=== PATIENT | female | born 1995 | race Hispanic/Latino ===

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

== ENCOUNTER 2017-09-23 15:38 | Emergency (ER) | payer BC, SELFPAY | END 2017-09-23 16:22 | disposition home or self-care (01) | LOC: NAV ERS 15:38 | DX: L55.0 Sunburn of first degree (principal) | CPT/HCPCS: 99282 ==

== ENCOUNTER 2018-03-29 11:30 | Emergency (ER) | payer BC ==
[2018-03-29 12:05] LABS: #Eosinphils 0.1 thou/uL (0.0-0.7); #Lymphocytes 1.7 thou/uL (1.20-3.40); #Monocytes 0.4 thou/uL (0.11-0.59); #Neutrophils 3.1 thou/uL (1.40-6.50); %Basophils 0.6 % (0.0-1.0); %Eosinophils 1.1 % (0.0-10.0); %Lymphocytes 31.5 % (28.0-48.0); %Monocytes 7.6 % (0.0-4.0); %Neutrophils 59.3 % (31.0-61.0); Hemoglobin 13.8 g/dL (12.0-16.0); Mean Corpuscular HGB CONC 33.4 g/dL (32.0-36.0); Mean Corpuscular Hemoglobin 28.7 pg (25.0-35.0); Mean Corpuscular Volume 85.8 fL (78.0-98.0); Mean Platelet Volume 7.1 fL (7.4-10.4); Platelet Count 239 thou/uL (130-400); RBC Distribution Width 11.3 % (11.5-14.5); Red Blood Cell (RBC) Count 4.83 mill/uL (4.00-5.20); White Blood Cell (WBC) Count 5.2 thou/uL (4.8-10.8)
== END 2018-03-29 13:17 | disposition short-term general hospital (02) ==
LOC: NAV ERS 11:30
DX: O46.91 Antepartum hemorrhage, unspecified, first trimester (principal); Z3A.01 Less than 8 weeks gestation of pregnancy
CPT/HCPCS: 36415; 84702; 85025; 86900; 86901; 99284

== ENCOUNTER 2018-06-23 19:38 | Emergency (ER) | payer BC ==
[2018-06-23 20:11] LABS: Pregnancy Test - Urine (BHCG) Negative (Negative); Pregu Control Background? CLEAR/WHITE (CLR/WHITE); Pregu Control Bar Appear? YES (CONTROL BAR); Specific Gravity 1.021 (1.002-1.036)
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
== END 2018-06-23 20:55 | disposition home or self-care (01) ==
LOC: NAV ERS 19:38
DX: M54.5 Low back pain (principal); V43.62XA Car passenger injured in collision with other type car in traffic accident, initial encounter
CPT/HCPCS: 72100; 81025

== ENCOUNTER 2018-12-06 09:50 | Outpatient (CLI) | payer BC ==
--- NOTE | 2018-12-06 11:09 | ULT ---
EXAM: OB ultrasound COMPARISON: None HISTORY: female. Evaluate size, dates, and anatomy. TECHNIQUE: Multiplanar grayscale and color Doppler transabdominal sonographic images are obtained. FINDINGS: There is a single intrauterine gestation in breech presentation. Cardiac Doppler demonstrat es heart tones with a heart rate of 157 beats per minute. The placenta is located posterior without evidence of placenta previa. There is a normal amount of amniotic fluid with an amn iotic fluid index of 11.7 centimeters. The cervical length was not measured on this exam. biometry measurements: BPD 3.68 cm -- 17 weeks 1 day HC 14 cm -- 17 weeks 2 days AC 11.4 cm -- 17 weeks 1 day FL 2.39 cm -- 17 weeks 1 day The estimated gestational age by ultrasound is 17 weeks 1 day with an GENARO on05/15/2019. Gestational ag e by the last menstrual period is 18 weeks 4 days. The estimated weight by ultrasound is 185 g. This represents 56 percentile for weight. A 4 chambered heart is visualized. The cerebellum, visualized portions of the spine, kidneys, u rinary bladder, and cord insertion demonstrate a normal sonographic appearance. A three-vessel cord is not visualized, but there is flow on either side of the urinary bladder sugges ting a three-vessel cord.. No anomalies are seen. IMPRESSION: 1. Single intrauterine gestation in breech presentation with heart tones documented. Estimated gestational age by ultrasound is 17 weeks 1 day. 2. Estimated weight is 185 g. 3. Amniotic fluid index is 11.7 centimeters.
== END 2018-12-06 09:51 | disposition home or self-care (01) ==
LOC: NAV ULT 09:50
PROVIDERS: ATTEND Family Medicine
DX: Z34.82 Encounter for supervision of other normal pregnancy, second trimester (principal); Z3A.18 18 weeks gestation of pregnancy
CPT/HCPCS: 76805

== ENCOUNTER 2020-09-21 19:37 | Emergency (ER) | payer BC ==
[2020-09-21] MEDS ORDERED: Proparacaine 0.5% Opth 15 ML BOT ONE (20:15)
[2020-09-21] MEDS ORDERED: Fluorescein Opthalmic Strip ONE (20:15)
[2020-09-21] MEDS ORDERED: Gentamicin Ophth Soln 0.3% 5 ml Bottle ONE (20:26)
== END 2020-09-21 20:35 | disposition home or self-care (01) ==
LOC: NAV ERS 19:37
DX: S05.02XA Injury of conjunctiva and corneal abrasion without foreign body, left eye, initial encounter (principal); X58.XXXA Exposure to other specified factors, initial encounter
CPT/HCPCS: 99283

== ENCOUNTER 2020-12-11 22:58 | Emergency (ER) | payer BC ==
[2020-12-11] MEDS ORDERED: Ondansetron ODT 4 MG TAB ONE (23:33)
== END 2020-12-11 23:56 | disposition home or self-care (01) ==
LOC: NAV ERS 22:58
DX: R11.2 Nausea with vomiting, unspecified (principal); F43.20 Adjustment disorder, unspecified
CPT/HCPCS: 99283; Q0162